=== PATIENT | male | born 1990 | race African-American/Black ===

== ENCOUNTER → 2017-11-21 | Outpatient (CLI) | payer OTHER, SELFPAY | LOC: M CARPUL 10:51 | DX: Z68.23 Body mass index [BMI] 23.0-23.9, adult (principal); Z00.01 Encounter for general adult medical examination with abnormal findings | CPT/HCPCS: 71046 ==

== ENCOUNTER → 2018-02-12 | Outpatient (REF) | payer OTHER ==
[2018-02-12 19:29] LABS: BASO % 0.8 % (0.0-1.0); EOS # 0.7 10^3/uL (0.0-0.50); HEMATOCRIT 39.8 % (42.0-52.0); HEMOGLOBIN 12.3 g/dl (13.5-17.5); IMMATURE GRANULOCYTE % 0.2 % (0-3.0); LYMPH # 1.8 10^3/uL (1.5-6.5); LYMPH % 36.5 % (24.0-44.0); MEAN CORPUSCULAR HEMOGLOBIN 21.4 pg (27.0-33.0); MEAN CORPUSCULAR HGB CONC 30.9 g/dl (32.0-36.5); MEAN CORPUSCULAR VOLUME 69.1 fl (80.0-96.0); MONO # 0.4 10^3/uL (0.0-0.8); MONO % 8.6 % (0.0-5.0); NEUTROPHILS # 1.9 10^3/uL (1.8-7.7); NEUTROPHILS % 38.9 % (36.0-66.0); PLATELET COUNT, AUTOMATED 291 10^3/uL (150-450); RED BLOOD COUNT 5.76 10^6/uL (4.30-6.10); RED CELL DISTRIBUTION WIDTH 14.8 % (11.5-14.5); WHITE BLOOD COUNT 4.8 10^3/uL (4.0-10.0)
[2018-02-12 19:40] LABS: IRON (FE) 80 UG/DL (65-175)
[2018-02-12 19:40] LABS: FERRITIN 201 NG/ML (26-388)
[2018-02-12 19:46] LABS: VITAMIN B12 LEVEL 962 PG/ML
[2018-02-12 19:47] LABS: FOLATE 11.6 NG/ML
== END ==
LOC: M LAB REF 18:55
DX: D64.9 Anemia, unspecified (principal)

== ENCOUNTER → 2018-03-28 | Outpatient (REF) | payer OTHER ==
[2018-03-28 19:15] LABS: BASO % 0.8 % (0.0-1.0); EOS # 0.2 10^3/uL (0.0-0.50); EOS % 4.1 % (0.0-3.0); HEMATOCRIT 43.9 % (42.0-52.0); HEMOGLOBIN 13.4 g/dl (13.5-17.5); LYMPH # 1.6 10^3/uL (1.5-6.5); LYMPH % 44.7 % (24.0-44.0); MEAN CORPUSCULAR HEMOGLOBIN 21.1 pg (27.0-33.0); MEAN CORPUSCULAR HGB CONC 30.5 g/dl (32.0-36.5); MEAN CORPUSCULAR VOLUME 69.1 fl (80.0-96.0); MONO # 0.3 10^3/uL (0.0-0.8); MONO % 8.5 % (0.0-5.0); NEUTROPHILS # 1.5 10^3/uL (1.8-7.7); NEUTROPHILS % 41.9 % (36.0-66.0); PLATELET COUNT, AUTOMATED 319 10^3/uL (150-450); RED BLOOD COUNT 6.35 10^6/uL (4.30-6.10); WHITE BLOOD COUNT 3.7 10^3/uL (4.0-10.0)
[2018-03-28 19:21] LABS: PERCENT SATURATION 32.8 % (19.7-50.0)
[2018-04-04 00:31] LABS: HEMOGLOBIN A 67.1 % (96.4-98.8); HEMOGLOBIN A2 4.4 % (1.8-3.2); HEMOGLOBIN S 28.5 % (0.0); HGB SOLUBILITY Positive (Negative)
== END ==
LOC: M LAB REF 18:35
PROVIDERS: ATTEND Nurse Practitioner Family
DX: D64.9 Anemia, unspecified (principal)